=== PATIENT | male | born 1970 | race Caucasian/White ===

== ENCOUNTER 2016-05-05 15:51 | Emergency (ER) | payer OTHER ==
[~2016-05-05] VITALS: Ht 177.8 cm; Wt 91.0 kg
[2016-05-05 15:53] VITALS: BP 134/78; PULSE 61; RESP 15; TEMP 97.8; O2SAT 98
--- NOTE | 2016-05-05 16:40 | PD ---
HPI Chief Complaint: Injury Time Seen by Provider: 16:40 Travel History International Travel<30 days: No Contact w/Intl Traveler<30days: No Traveled to known affect area: No History of Present Illness HPI 45-year-old male presents to the emergency Department with complaint of right bicep pain after helping his children do flips and hearing a pop. He thinks he may have a bicep tendon tear. Denies paresthesias, loss of sensation to the affected extremity. Reports decreased range of motion secondary to pain. Denies fever, chills, nausea, vomiting. Has not taken any medication to try any treatments to alleviate his symptoms. He did put the arm in a homemade sling to immobilize it. Denies allergies. History of hypercholesterolemia. No other modifying factors or associated signs and symptoms. PFSH Past Medical History Cancer: No Cardiovascular Problems: No Diabetes: No Endocrine: No Genitourinary: No Hepatitis: No Hiatal Hernia: No Immune Disorder: No Musculoskeletal: No Neurologic: No Psychiatric: No Reproductive: No Respiratory: No Immunizations Current: Yes Thyroid Disease: No Past Surgical History AICD: No Joint Replacement: No Pacemaker: No Social History Tobacco Use: No Allergies-Medications (Allergen,Severity, Reaction): Coded Allergies: No Known Allergies (Unverified , 05/05/16) Reported Meds & Prescriptions Reported Meds & Active Scripts Active Percocet (Oxycodone-Acetaminophen) 5-325 mg Tab 1-2 Tab PO Q6H PRN Ibuprofen 800 Mg Tab 800 Mg PO Q6HR PRN Flexeril (Cyclobenzaprine HCl) 10 Mg Tab 10 Mg PO TID PRN Review of Systems Except as stated in HPI: all other systems reviewed are Neg Physical Exam Narrative GENERAL: Well-nourished, well-developed male patient, in no acute distress; appears painful SKIN: Warm and dry. HEAD: Atraumatic. Normocephalic. EYES: Pupils equal and round. No scleral icterus. No injection or drainage. ENT: Mucosa pink and moist. Airway patent. NECK: Trachea midline. CARDIOVASCULAR: Regular rate. RESPIRATORY: No accessory muscle use. GASTROINTESTINAL: Flat. MUSCULOSKELETAL: Exam is somewhat limited secondary to patient guarding and pain. Right upper extremity is supple and non-tense with 2+ radial pulse and sensory intact. Right elbow is without erythema, edema, tenderness on palpation ; with limited range of motion at the elbow joint secondary to pain and patient guarding; reproducible tenderness to the distal biceps area/antecubital area on palpation; unable to perform hook test secondary to pain and guarding; just above the antecubital area appears different than the left arm. No obvious deformities. No clubbing. No cyanosis. No edema. NEUROLOGICAL: Awake and alert. Oriented 3. No obvious cranial nerve deficits. Motor grossly within normal limits. Normal speech. PSYCHIATRIC: Appropriate mood and affect; insight and judgment normal. Data Data Last Documented VS Vital Signs Date Time Temp Pulse Resp B/P Pulse Ox O2 Delivery O2 Flow Rate FiO2 05/05/16 16:56 18 05/05/16 15:53 97.8 61 134/78 98 Orders Orphenadrine Inj (Norflex Inj) (05/05/16 16:45) Morphine Inj (Morphine Inj) (05/05/16 16:45) Elbow, Complete (4 Vws) (05/05/16 16:40) Sling Cradle Arm (05/05/16 ) Ondansetron Odt (Zofran Odt) (05/05/16 18:15) Mri Upper Arm W/O Contrast (05/05/16 ) Splint Or Brace Apply/Monitor (05/05/16 20:46) Sling Cradle Arm (05/05/16 ) Fiberglass Splint Elbow Adult (05/05/16 ) Sling Cradle Arm (05/05/16 ) MDM Medical Decision Making Medical Screen Exam Complete: Yes Emergency Medical Condition: Yes Medical Record Reviewed: Yes Differential Diagnosis distal Biceps tendon tear, elbow dislocation, arm strain, fracture Narrative Course 45-year-old male with right arm injury at the elbow joint area. The right upper extremity supple and non-tense with 2+ radial pulse and sensory intact. Limited range of motion of the elbow joint secondary to pain and patient guarding. Unable to assess appropriately secondary to patient guarding and pain. He has severe tenderness to the right distal biceps/antecubital area. Norflex and morphine ordered. Right elbow x-ray ordered. 1800: On reexamination after pain medications, I am still unable to appropriately assess bicep tendon secondary to patient guarding and pain. Spoke with Dr. Kendrick, my attending physician, and he recommended to call orthopedics. 1840: Call out to Dr. Wang, orthopedic. 184: Right elbow x-ray concludes No acute bony abnormality. 1855: I spoke with Dr. Wang, orthopedic surgeon, and he recommended to do MRI of the right upper extremity. MRI ordered. 1899: Patient reported off to Bernabe Benitez PA-C. See his note for patient disposition. Referrals: Mitul Wang MD Orthopaedic Surgeon Primary Care Physician Patient Instructions: General Instructions Additional Instructions: Tylenol or ibuprofen as needed and as directed to reduce pain and inflammation Rest, ice, and compress extremity to decrease pain and inflammation Arm sling for support Avoid aggravating activity; increase activity as tolerated Follow-up with primary care provider Follow-up with orthopedics. Our on-call doctor is Dr. Mitul Wang. His information is provided in your discharge instructions. Return to the emergency department immediately with worsening symptoms Med/Other Pt SpecificInfo: Prescription(s) given Scripts Oxycodone-Acetaminophen (Percocet)5-325 mg Tab1-2 Tab PO Q6H PRN (PAIN GREATER THAN 5) #20 TAB Ref 0 Prov:Quinn Kendrick MD 05/05/16 Ibuprofen 800 Mg [id number] Mg PO Q6HR PRN (PAIN LESS THAN 5 ON SCALE) #30 TAB Ref 0 Prov:Shobha HsuP 05/05/16 Cyclobenzaprine (Flexeril)10 Mg Tab10 Mg PO TID PRN (MUSCLE SPASM) #30 TAB Ref 0 Prov:Shobha Hsu 05/05/16 Shobha Hsu May 05, 2016 16:40
[2016-05-05] MEDS ORDERED: ORPHENADRINE INJ 60 MG/2 ML AMP IM ONE (16:45)
[2016-05-05] MEDS ORDERED: MORPHINE SULFATE 4 MG/ML INJ IM ONE (16:45)
[2016-05-05 16:56] VITALS: RESP 18
[2016-05-05] MEDS ORDERED: PERC5TAB12 PO ×2 (17:59→18:01)
[2016-05-05] MEDS ORDERED: IBUP800T23 PO (18:00)
[2016-05-05] MEDS ORDERED: CYCL1TAB29 PO (18:00)
[2016-05-05] MEDS ORDERED: ONDANSETRON ODT 4 MG TAB PO ONE (18:15)
--- NOTE | 2016-05-05 18:42 | RADRPT ---
EXAM DATE/TIME: 05/05/2016 17:17 [facility] COMPARISON: No previous studies available for comparison. INDICATIONS : Trauma, while spotting during gymnastics felt a pop and extreme pain to right bicep area. MEDICAL HISTORY : Pinched nerve one year ago on upper right side SURGICAL HISTORY : None. ENCOUNTER: Initial ACUITY: 1 day PAIN SCORE: 10/10 LOCATION: Right Elbow FINDINGS: Multiple view examination of the right elbow demonstrates no soft tissue swelling, joint effusion, or fracture. The osseous structures are in normal alignment. Bony mineralization is normal. CONCLUSION: 1. No acute bony abnormality. Shaji Larry MD on May 05, 2016 at 18:33 Board Certified Radiologist. This report was verified electronically.
--- NOTE | 2016-05-05 20:32 | RADRPT ---
EXAM DATE/TIME: 05/05/2016 19:46 [facility] COMPARISON: No previous studies available for comparison. INDICATIONS : Trauma. Pain to right bicep. MEDICAL HISTORY : None. SURGICAL HISTORY : Retina repair. Shoulder arthroscopy. ENCOUNTER: Initial ACUITY: 1 day PAIN SCORE: 4/10 LOCATION: Right humerus. TECHNIQUE: Multiplanar multisequence MRI examination of the humerus was performed without contrast. FINDINGS: The biceps tendon is torn from its insertion on the radial tuberosity and is retracted about 5 cm pro ximally. There is abnormal fluid around the ruptured biceps tendon tracking down to the radial tubero sity. No other tendon rupture is identified. No bony abnormalities are identified within the humerus. CONCLUSION: 1. Avulsed biceps tendon from its insertion with retraction about 5 cm proximal to the radial tuberos ity. Shaji Larry MD on May 05, 2016 at 20:26 Board Certified Radiologist. This report was verified electronically.
--- NOTE | 2016-05-05 20:53 | PD ---
Physical Exam Narrative Patient was signed out to me by Shobha GUERRERO, pending MRI results. Please see her documentation for full H&P. Data Data Last Documented VS Vital Signs Date Time Temp Pulse Resp B/P Pulse Ox O2 Delivery O2 Flow Rate FiO2 05/05/16 16:56 18 05/05/16 15:53 97.8 61 134/78 98 Orders Orphenadrine Inj (Norflex Inj) (05/05/16 16:45) Morphine Inj (Morphine Inj) (05/05/16 16:45) Elbow, Complete (4 Vws) (05/05/16 16:40) Sling Cradle Arm (05/05/16 ) Ondansetron Odt (Zofran Odt) (05/05/16 18:15) Mri Upper Arm W/O Contrast (05/05/16 ) Splint Or Brace Apply/Monitor (05/05/16 20:46) MDM Supervised Visit with ABRAN: No Narrative Course Patient in no obvious distress upon re-evaluation. All pertinent Radiology result(s) discussed with patient/family. Any questions/concerns in reference to patient diagnosis/condition discussed and clarified prior to patient's discharge. Reinforced sheer importance of close follow up with orthopedics. Instructed patient to return to ED immediately, if symptoms return/worsen. Pt showed understanding of above instructions. Further instructions and recommendations were detailed in discharge paperwork. Pt ambulated without difficulty out of ED at discharge. Physician Communication Physician Communication [address] Wang, orthopedic on-call, who recommends placing patient in posterior long-arm and having patient contact his office on Saturday for follow-up appointment and to schedule surgery. Diagnosis Primary Impression: Rupture of right biceps tendon Qualified Code: S46.111A - Rupture of right biceps tendon, initial encounter Referrals: Mitul Wang MD Patient Instructions: General Instructions, How to Use a Sling (GEN), Splint Care (ED), Tendon Rupture (ED) Additional Instruction: Follow-up with Dr. Wang this week, call his office on Saturday for an appointment. Take all medication as prescribed. Apply ice to affected area 20 minutes per hour as needed for pain and swelling. Return to the emergency department if symptoms get worse. Med/Other Pt SpecificInfo: Prescription(s) given Scripts Oxycodone-Acetaminophen (Percocet)5-325 mg Tab1-2 Tab PO Q6H PRN (PAIN GREATER THAN 5) #20 TAB Ref 0 Prov:Quinn eKndrick MD 05/05/16 Ibuprofen 800 Mg [id number] Mg PO Q6HR PRN (PAIN LESS THAN 5 ON SCALE) #30 TAB Ref 0 Prov:Shobha Hsu 05/05/16 Cyclobenzaprine (Flexeril)10 Mg Tab10 Mg PO TID PRN (MUSCLE SPASM) #30 TAB Ref 0 Prov:Shobha Hsu 05/05/16 Disposition: 01 DISCHARGE HOME Condition: Stable Josue Benitez May 05, 2016 20:53
[2016-05-10] MEDS ORDERED: OXYC1TAB63 PO (15:42)
== END 2016-05-05 21:32 | disposition home or self-care (01) ==
LOC: NEPB 15:51
DX: S46.111A Strain of muscle, fascia and tendon of long head of biceps, right arm, initial encounter (principal); X58.XXXA Exposure to other specified factors, initial encounter; Y93.79 Activity, other specified sports and athletics; Y99.8 Other external cause status
CPT/HCPCS: 29105; 73080; 73218; 96372; 99284; J2270; J2360

== ENCOUNTER → 2016-05-10 | Day surgery (SDC) | payer OTHER ==
[~2016-05-10] VITALS: Ht 177.8 cm; Wt 95.6 kg
[~2016-05-10] MED LIST: ACETAMINOPHEN/HYDROcodone 325 MG/5 MG TAB PO PRN; BUPIVACAINE HCL PF 0.5% 30 ML VIAL NB ONE; CYCL1TAB29 PO; DEXAMETHASONE SOD PHOS PF 10 MG/ML VIAL IV ONE; FAMOTIDINE 20 MG/2 ML VIAL ONE; GENTAMICIN SULFATE 80 MG/2 ML VIAL ONE; IBUP800T23 PO; INSULIN HUMAN REGULAR 1,000 UNITS/10 ML VIAL SQ PRN; LACTATED RINGER'S 1000 ML INJ 1,000 ML IV ONE; LACTATED RINGER'S 1000 ML INJ 1,000 ML IV SCH; LACTATED RINGER'S 1000 ML IV SCH; METOPROLOL TARTRATE 25 MG TAB PO PRN; MIDAZOLAM HCL 5 MG/5 ML VIAL ONE; MORPHINE SULFATE 4 MG/ML INJ IV PUSH PRN; NEOSTIGMINE 3 MG/3 ML SYR IV ONE; ONDANSETRON HCL 4 MG/2 ML VIAL IV PRN; ONDANSETRON HCL 4 MG/2 ML VIAL IV PUSH ONE; OXYC1TAB63 PO; PERC5TAB12 PO; POVIDONE IODINE 7.5% SCRUB 118 ML BOTTLE TOP SCH; PROPOFOL 200 MG/20 ML AMP IV ONE; SODIUM CHLORID 0.9% 500 ML IV SCH; SODIUM CHLORIDE 0.9% FLUSH 5 ML FLUSH IVF PRN; SODIUM CHLORIDE 0.9% FLUSH 5 ML FLUSH IVF SCH; VANCOMYCIN INJ 1,250 MG in SODIUM CHLOR 0.9% 250 ML INJ 250 ML IV SCH; ceFAZolin 2 GM PREMIX 50 ML IV SCH; fentaNYL CITRATE 250 MCG/5 ML AMP ONE
[2016-05-10 11:28] LABS: AUTOMATED NEUTROPHIL # 3.8 TH/MM3 (1.8-7.7); BASOPHIL # 0.1 TH/MM3 (0-0.2); BASOPHIL % 0.8 % (0.0-2.0); EOSINOPHIL # 0.1 TH/MM3 (0-0.4); EOSINOPHIL % 2.1 % (0.0-4.0); HEMATOCRIT 43.3 % (39.0-51.0); HEMO FLAGS DIFF FINAL; LYMPHOCYTE # 2.2 TH/MM3 (1.0-4.8); MEAN CELL VOLUME 88.2 FL (80.0-100.0); MEAN CORPUSCULAR HEMOGLOBIN 30.8 PG (27.0-34.0); MEAN CORPUSCULAR HGB CONC 34.9 % (32.0-36.0); MONO % 7.4 % (0.0-8.0); NEUT % 56.7 % (16.0-70.0); PLATELET COUNT 252 TH/MM3 (150-450); RED BLOOD COUNT 4.92 MIL/MM3 (4.50-5.90); RED CELL DISTRIBUTION WIDTH 13.2 % (11.6-17.2); WHITE BLOOD COUNT 6.8 TH/MM3 (4.0-11.0)
[2016-05-10 11:39] LABS: APTT (PATIENT) 27.1 SEC (24.3-30.1); PROTHROMBIN TIME - PATIENT 11.4 SEC (9.8-11.6)
[2016-05-10 11:43] LABS: ANION GAP 5 MEQ/L (5-15); AST (GOT) 24 U/L (15-37); BLOOD UREA NITROGEN 21 MG/DL (7-18); CHLORIDE 103 MEQ/L (98-107); GLOMERULAR FILTRATION RATE 76 ML/MIN (>89); POTASSIUM 4.2 MEQ/L (3.5-5.1); SODIUM (NA) 139 MEQ/L (136-145)
[2016-05-10 11:46] LABS: ALKALINE PHOSPHATASE 49 U/L (45-117); ALT (GPT) 37 U/L (12-78); TOTAL BILIRUBIN ADULT 0.4 MG/DL (0.2-1.0)
--- NOTE | 2016-05-10 15:56 | RADRPT ---
EXAM DATE/TIME: 05/10/2016 14:31 [facility] COMPARISON: No previous studies available for comparison. INDICATIONS : Right bicep tendon repair. OR. MEDICAL HISTORY : None. SURGICAL HISTORY : Retina repair. Shoulder arthroscopy. ENCOUNTER: Initial ACUITY: 1 day PAIN SCORE: Non-responsive. LOCATION: Right elbow FINDINGS: A pair of adjacent sanaz are seen along the proximal radial tuberosity. The visualized elbow joint is intact with normal alignment. CONCLUSION: Satisfactory appearance as above Huy Ceja MD on May 10, 2016 at 15:52 Board Certified Radiologist. This report was verified electronically.
[2016-05-10 16:45] VITALS: BP 110/68; PULSE 68; RESP 16; TEMP 98; O2SAT 95
--- NOTE | 2016-05-10 16:56 | MP ---
cc: OBIE GRIDER DATE OF SURGERY 05/10/16 PREOPERATIVE DIAGNOSIS Rupture of the distal biceps tendon, right elbow. POSTOPERATIVE DIAGNOSIS Rupture of the distal biceps tendon, right elbow. OPERATIVE PROCEDURE Reattachment distal biceps tendon to the radial tuberosity. SURGEON Dr. Chavez Grider ANESTHESIA General TECHNIQUE The patient received axillary block in the holding area for postoperative pain control. He had general anesthesia followed by thorough preparation of the right upper extremity with alcohol and ChloraPrep and draped in routine fashion. We did not use a tourniquet. A lazy S-shaped incision was made starting about 5 cm above the flexion crease of the elbow on the lateral border of the distal biceps and then curved slightly medially and then down along the medial border of the mobile wad. Incision deepened through the subcutaneous tissue. Large veins were protected. Some smaller veins were cut and cauterized. Fascia was incised. Initially I thought that the biceps tendon had probably retracted much higher and, therefore, that area was explored and found to normal, but the biceps tendon was then traced distally and, once we were sure of the biceps tendon, gentle traction was placed on it and the ruptured tendon presented itself in the wound. The course of the biceps tendon was carefully dissected protecting the lateral cutaneous nerves of forearm throughout and the fascia was incised along the medial border of the brachial radialis. A large vein crossing this area had to be clamped, cut and tied with 0 silk. Deeper dissection was carried out carefully and the recurrent branch of the radial artery was clamped, cut and ligated. Fluoroscopy was used to make sure we are in the vicinity of the bicipital tuberosity. With the forearm in full supination, the dissection was carried out and the residual fibers of the supinator were then with a small elevator taking care to stay as far medially as we could. Biceps tuberosity is exposed. Small Hohmann retractor was placed, biceps tuberosity was palpated. A curette is used to decorticate the bone. Two Mitek super anchors were then introduced following routine technique. I had placed a #2 FiberWire suture in addition to the Ethilon sutures that the anchors come with and also waxed the sutures so they were applied freely in the Mitek anchor and indeed this was tested. One ___ each of the Ethibond was then weaved through the medial and lateral borders of the biceps tendon in a modified [place] stitch and then tied at the musculotendinous junction. Now one limb each the FiberWire was placed through the tendon in a modified Astrid fashion all the way to the musculotendinous junction and again tied to each other. We are now able to pull the two Ethilon sutures and the two FiberWire sutures and bring the tendon into apposition with the bone and as the elbow was maintained in about 50-60 degrees of flexion and full supination, the sutures were tied sequentially and then tied to each other getting good repair and approximation of tendon to bone. Both maintained in flexion and full supination. Wound was irrigated with saline solution. There was good hemostasis. Subcutaneous tissue closed with Vicryl and then the skin closed with interrupted 3-0 nylon vertical mattress sutures. Dressings are applied with Xeroform, 4x4s and Sof-Rol and a posterior fiberglass splint was applied and secured with Ketty and Zack bandage. The patient transferred to recovery room in satisfactory condition. The patient tolerated the procedure well. TRANSFUSIONS AND COMPLICATIONS None. POSTOPERATIVE CONDITION Satisfactory PROGNOSIS Good ESTIMATED BLOOD LOSS 20-25 mL. MD LAURA Aguilar/ /3:52 PM /4:38 PM
--- NOTE | 2016-05-10 18:39 | EKG ---
Date Performed: 05/10/2016 Time Performed: 10:54:04 PTAGE: 45 years EKG: SINUS BRADYCARDIA BORDERLINE ECG NO PREVIOUS TRACING DOCTOR: Solomon Pineda Interpretating Date/Time 05/10/2016 18:38:04
== END | disposition home or self-care (01) ==
LOC: HSDC 10:06
PROVIDERS: ATTEND Orthopaedic Surgery
DX: S46.111A Strain of muscle, fascia and tendon of long head of biceps, right arm, initial encounter (principal); R94.31 Abnormal electrocardiogram [ECG] [EKG]; X58.XXXA Exposure to other specified factors, initial encounter; Y93.79 Activity, other specified sports and athletics
CPT/HCPCS: 01710; 24342; 36415; 64415; 73070; 76000; 80053; 85025; 85610; 85730; 93005; C1713; J2250; J2405; J2710; J3010; J3370; J7050; J7120; J1100; J1580